=== PATIENT | female | born 1955 | race Caucasian/White ===

== ENCOUNTER 2021-06-16 13:51 | Observation (INO) | payer MEDICARE, OTHER ==
--- NOTE | 2021-06-16 14:35 | ED ---
General Adult HPI - General Chief complaint: Weakness Stated complaint: Chest Pain Source: patient, old records reviewed Mode of arrival: EMS Limitations: no limitations - History of Present Illness Initial comments: This is a 66-year-old female presents to the emergency department with a history of chest pain over the last 2 weeks. Patient states the pain comes and goes and she's also been short of breath over that period of time as well. Patient decided to go to the emergency department this morning and she spent the last 20 hours there with multiple troponins were negative but she still does not feel at her baseline. Patient states she still feels a little short of breath and still having some chest pain. They do not have cardiology at that facility so they wanted the patient to come here. Evaluated by cardiology. Patient denies any recent fever chills or cough per patient denies abdominal pain patient denies nausea vomiting or diarrhea. Patient denies any recent injury or trauma. - Related Data Allergies Allergy/AdvReac Type Severity Reaction Status Date / Time azithromycin Allergy Swelling Verified 06/16/21 14:11 cyclobenzaprine AdvReac Chest Pain Verified 06/16/21 14:12 [From Flexeril] Review of Systems ROS Statement: Those systems with pertinent positive or pertinent negative responses have been documented in the HPI. ROS Other: All systems not noted in ROS Statement are negative. Past Medical History Past Medical History: Hyperlipidemia, Hypertension History of Any Multi-Drug Resistant Organisms: None Reported Past Surgical History: Orthopedic Surgery, Tonsillectomy, Tubal Ligation Additional Past Surgical History / Comment(s): right knee replacement, left toe plate Past Psychological History: No Psychological Hx Reported, Anxiety, Depression Smoking Status: Never smoker Past Alcohol Use History: None Reported Past Drug Use History: None Reported General Exam - General Exam Comments Initial Comments: GENERAL: Patient is well-developed and well-nourished. Patient is nontoxic and well- hydrated and is in mild distress. ENT: Neck is soft and supple. No significant lymphadenopathy is noted. Oropharynx is clear. Moist mucous membranes. Neck has full range of motion without eliciting any pain. EYES: The sclera were anicteric and conjunctiva were pink and moist. Extraocular movements were intact and pupils were equal round and reactive to light. Eyelids were unremarkable. PULMONARY: Unlabored respirations. Good breath sounds bilaterally. No audible rales rhonchi or wheezing was noted. CARDIOVASCULAR: There is a regular rate and rhythm without any murmurs gallops or rubs. ABDOMEN: Soft and nontender with normal bowel sounds. SKIN: Skin is clear with no lesions or rashes and otherwise unremarkable. NEUROLOGIC: Patient is alert and oriented x3. Cranial nerves II through XII are grossly intact. Motor and sensory are also intact. Normal speech, volume and content. Symmetrical smile. MUSCULOSKELETAL: Normal extremities with adequate strength and full range of motion. No lower extremity swelling or edema. No calf tenderness. LYMPHATICS: No significant lymphadenopathy is noted PSYCHIATRIC: Normal psychiatric evaluation. Limitations: no limitations Course Vital Signs 06/16/21 14:03 Temperature 98.2 F Pulse Rate 73 Respiratory 18 Rate Blood Pressure 103/57 O2 Sat by Pulse 95 Oximetry Medical Decision Making - Medical Decision Making EKG shows normal sinus rhythm at [address] interval is on a 52 QRS is 88 QT interval 386 QTC is 416. Patient's EKG shows inverted T waves inferiorly which were seen on the previous EKG from [facility] no ST segment elevation is noted. I spoke with the sound physician's he agreed to admit the patient admitted the patient I wrote admitting orders. Disposition Clinical Impression: Chest pain Disposition: ADMITTED IP TO THIS HOSP Referrals: Polo Morales MD [Primary Care Provider] - 1-2 days Time of Disposition: 14:35
[2021-06-16] MEDS ORDERED: NITROGLYCERIN SL TABS 0.4 MG TAB SUBLINGUAL PRN (14:36)
--- NOTE | 2021-06-16 16:08 | P.HPIM ---
History of Present Illness H&P Date: 06/16/21 Chief Complaint: chest discomfort This is a 66-year-old female presents with chest pain over the last 2 weeks. Patient states the pain comes and goes and she's also been short of breath over that period of time as well. She had multiple troponins were negative but she still does not feel at her baseline. Patient states she still feels a little short of breath and feels lethargic. Patient denies any recent fever chills or cough per patient denies abdominal pain patient denies nausea vomiting or diarrhea. She denies hematuria , dysuria or hematemesis. At the time of examination , pt is in bed and does not appear to be in distress Review of Systems 10 systems reviewed , pertinent + and - findings as in HPI. no n/v or dizziness Past Medical History Past Medical History: Hyperlipidemia, Hypertension History of Any Multi-Drug Resistant Organisms: None Reported Past Surgical History: Orthopedic Surgery, Tonsillectomy, Tubal Ligation Additional Past Surgical History / Comment(s): right knee replacement, left toe plate Past Psychological History: No Psychological Hx Reported, Anxiety, Depression Smoking Status: Never smoker Past Alcohol Use History: None Reported Past Drug Use History: None Reported Medications and Allergies Home Medications Medication Instructions Recorded Confirmed Type ALPRAZolam [Xanax] 0.5 mg PO TID PRN 06/16/21 06/16/21 History Alendronate Sodium [Fosamax] 35 mg PO WE 06/16/21 06/16/21 History Atenolol [Tenormin] 100 mg PO DAILY 06/16/21 06/16/21 History Atorvastatin [Lipitor] 20 mg PO DAILY 06/16/21 06/16/21 History Butalb/Acetaminophen/Caffeine 1 tab PO Q6H PRN 06/16/21 06/16/21 History [Esgic 50-325-40 mg Tablet] Cider Vinegar [Apple Cider Vinegar] 600 mg PO HS 06/16/21 06/16/21 History L.acidoph,Paracasei, B.lactis 2 cap PO DAILY 06/16/21 06/16/21 History [Probiotic] SUMAtriptan succinate [Imitrex] 50 mg PO BID PRN 06/16/21 06/16/21 History Triamterene-Hctz 37.5-25Mg 1 tab PO DAILY 06/16/21 06/16/21 History [Maxzide 37.5-25] Venlafaxine HCl ER [Effexor Xr] 37.5 mg PO DAILY 06/16/21 06/16/21 History amLODIPine [Norvasc] 2.5 mg PO DAILY 06/16/21 06/16/21 History Allergies Allergy/AdvReac Type Severity Reaction Status Date / Time erythromycin base Allergy Swelling/Ra Verified 06/16/21 15:40 [From Erythrocin] sh cyclobenzaprine AdvReac Chest Pain Verified 06/16/21 15:40 [From Flexeril] Physical Exam Vitals: Vital Signs Temp Pulse Pulse Resp BP BP Pulse Ox 06/16/21 15:55 97.9 F 65 16 144/69 99 06/16/21 15:40 98.2 F 66 18 128/55 95 06/16/21 15:32 66 18 128/55 95 06/16/21 14:03 98.2 F 73 18 103/57 95 Intake and Output 06/16/21 06/16/21 06/16/21 06:59 14:59 22:59 Other: Weight 69.4 kg Patient is well-developed and well-nourished. Patient is nontoxic not in distress ENT: Neck is soft and supple. No significant lymphadenopathy Neck has full range of motion without eliciting any pain. EYES: The sclera were anicteric and conjunctiva were pink and moist PULMONARY: Unlabored respirations. Good breath sounds bilaterally. CARDIOVASCULAR: There is a regular rate and rhythm without any murmurs gallops or rubs. ABDOMEN: Soft and nontender with normal bowel sounds. SKIN: Skin is clear with no lesions or rashes and otherwise unremarkable. NEUROLOGIC: Patient is alert and oriented x3. Cranial nerves II through XII are grossly intact. Motor and sensory are also intact. Normal speech, volume and content. Symmetrical smile. MUSCULOSKELETAL: Normal extremities with adequate strength and full range of motion. No lower extremity swelling or edema. PSYCHIATRIC: Normal psychiatric evaluation. Assessment and Plan Plan: 1. Chest discomfort , unspecified etiology: supportive care ,continue on tele , continue to monitor ,check cardiac enzymes and ddimer , obtain 2D ECHO and cardiology consult 2. Hypovolemia; NS @ 75 ml/hr 3. Anxiety: continue out pt [facility] 4. HLD: on statin 5. Migraine without exacerbation: supportive are 6. Depression: continue Effexor obs DVT prophylaxis: SCD
[2021-06-16] MEDS ORDERED: ALPRAZolam 0.5 MG TAB PO PRN (16:14)
[2021-06-16] MEDS: SODIUM CHLORIDE 0.9% 1,000 ML IV SCH (16:34)
[2021-06-16] MEDS: NITROGLYCERIN OINT 1 INCH/GM PACKET TOPICAL SCH (16:34)
[2021-06-16] MEDS ORDERED: atenoloL 50 MG TAB PO STA (16:52)
[2021-06-16] MEDS ORDERED: ASPIRIN 325 MG TAB PO STA (17:06)
[2021-06-16] MEDS: BUTALB/APAP/CAFF 50-325-40MG TAB PO PRN (17:50)
[2021-06-17] MEDS: NITROGLYCERIN OINT 1 INCH/GM PACKET TOPICAL SCH ×3 (01:28→14:57)
[2021-06-17] MEDS: BUTALB/APAP/CAFF 50-325-40MG TAB PO PRN ×2 (04:46→14:55)
[2021-06-17] MEDS: SODIUM CHLORIDE 0.9% 1,000 ML IV SCH (05:49)
[2021-06-17 07:36] VITALS: RESP 18
[2021-06-17] MEDS ORDERED: ATORVASTATIN 20 MG TAB PO SCH (09:00)
[2021-06-17] MEDS ORDERED: VENLAFAXINE HCL ER 37.5 MG CAP PO SCH (09:00)
[2021-06-17] MEDS ORDERED: amLODIPine 2.5 MG TAB PO SCH (09:00)
[2021-06-17] MEDS ORDERED: atenoloL 50 MG TAB PO SCH (09:00)
[2021-06-17] MEDS ORDERED: ASPIRIN 81 MG PO SCH (09:00)
[2021-06-17] MEDS ORDERED: ASPIRIN 325 MG TAB PO SCH (09:00)
[2021-06-17] MEDS ORDERED: TRIAMTERENE-HCTZ 37.5-25MG 1 EACH TAB PO SCH (09:00)
[2021-06-17 09:35] LABS: Basophils # (A) 0.04 X 10*3/uL (0.00-0.10); Basophils % (A) 0.7 %; Eosinophils # (A) 0.13 X 10*3/uL (0.04-0.35); Eosinophils % (A) 2.3 %; HCT 35.7 % (37.2-46.3); HGB 12.4 g/dL (12.0-15.0); Lymphocytes # (A) 2.24 X 10*3/uL (0.90-5.00); Lymphocytes % (A) 39.4 %; MCH 31.6 pg (27.0-32.0); MCHC 34.7 g/dL (32.0-37.0); MCV 90.8 fL (80.0-97.0); Mean Platelet Volume 9.9 fL (9.5-12.2); Monocytes # (A) 0.89 X 10*3/uL (0.20-1.00); Monocytes % (A) 15.6 %; Neutrophils # (A) 2.36 X 10*3/uL (1.80-7.70); Neutrophils % (A) 41.5 %; Platelet Count 302 X 10*3/uL (140-440); RBC 3.93 X 10*6/uL (4.10-5.20); RDW 11.9 % (11.5-14.5); WBC 5.69 X 10*3/uL (4.50-10.00)
--- NOTE | 2021-06-17 10:05 | P.CRDCN ---
History of Present Illness History of present illness: HISTORY OF PRESENTING ILLNESS This is a pleasant 66-year-old female past medical history significant for dyslipidemia, hypertension, anxiety, depression. She does not follow with a international relations teacher. We have been asked to see in consultation for chest pain. Patient is seen and examined seen and examined at bedside, no acute distress. Patient states that she has been having symptoms of fatigue, shortness of breath, chest pain, lightheadedness for the past 2 weeks. 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 She states she did have some radiation to her back. She had associated nausea, shortness of breath. Her co-workers noticed she did not look well and said she should go home. She denies any specific aggravating factors. She states she went home and her drove her to the ER. She initially went to [facility] in [place]. She states she was given nitroglycerin which helped relieve her pain. She states she january of had covid-19 she was exposed by a neighbor but found out late in November 2020 but did not get tested. She denies history of coronary artery disease, [place], stroke, diabetes. She is a non-smoker, denies alchohol use. She denies any symptoms of orthopnea or PND. Over the past month she states she has just been feeling short of breath and easily fatigued. She states she just has not been feeling well. She is normally active, but over the past month she states she's been feeling herself. At [facility] in [place], Labs revealed troponin negative 1, d-dimer negative, COVID- 19 PCR negative, hemoglobin 13.6, WBC 8, platelets 304, sodium 131, potassium 3.8, BUN 23, serum creatinine 1.3. Patient was given sublingual nitro, 81 mg of aspirin. DIAGNOSTICS EKG reveals sinus rhythm, heart rate 70, T wave inversions in leads inferior leads. No prior EKG to compare Telemetry tracings indicate sinus mechanism heart rate is 6080s. Laboratory reviewed, troponin negative 2, COVID-19 PCR negative, d-dimer negative, WBC 5.6, hemoglobin 12, platelets 302, CMP panel pending. Current home medications include amlodipine 2.5 mg daily, atenolol 100 mg daily, atorvastatin 20 mg daily, Effexor, triamterenehctz 37.5-25mg daily, Imitrex, Fosamax, PRN Xanax REVIEW OF SYSTEMS At the time of my exam: CONSTITUTIONAL: Denies fever or chills. CARDIOVASCULAR: +chest pain, +shortness of breath, Denies orthopnea, PND or palpitations. RESPIRATORY: Denies cough. GASTROINTESTINAL: +nausea Denies abdominal pain, diarrhea, constipation, vomiting. MUSCULOSKELETAL: Denies myalgias. NEUROLOGIC: +lightheadeness Denies numbness, tingling, headacbe or weakness. ENDOCRINE: Denies fatigue, weight change, polydipsia or polyurina. GENITOURINARY: Denies burning, hematuria or urgency with micturation. HEMATOLOGIC: Denies history of anemia or bleeding. PHYSICAL EXAMINATION Blood pressure 129/60, heart rate 59, afebrile, maintaining oxygen saturations on room air. CONSTITUTIONAL: No apparent distress. HEENT: Head is normocephalic. Pupils are equal, round. Sclerae anicteric. Mucous membranes of the mouth are moist. No JVD. No carotid bruit. CHEST EXAMINATION: Lungs are clear to auscultation. No chest wall tenderness is noted on palpation or with deep breathing. HEART EXAMINATION: Regular rate and rhythm. S1, S2 heard. No murmurs, gallops or rub. ABDOMEN: Soft, nontender. Positive bowel sounds. EXTREMITIES: 2+ peripheral pulses, no lower extremity edema and no calf tenderness. SKIN: warm, dry NEUROLOGIC EXAMINATION: Patient is awake, alert and oriented x3. ASSESSMENT Chest pain, atypical, acute coronary syndrome has been ruled out Dyslipidemia Hypertension History of anxiety and depression Acute Kidney Injury, sCr 1.3 at [facility], repeat pending PLAN An acute coronary event has been ruled out with no EKG evidence of ischemia and negative cardiac enzymes. Obtain 2D echocardiogram and doppler study to assess cardiac structure and function. Perform stress echo test to assess for stress induced cardiac ischemia. If abnormal will consider coronary angiography. Continue aspirin 81 mg daily, amlodipine 2.5 mg daily, atorvastatin 20 mg daily, and triamterenehctz 37.5-25mg daily Hold atenolol prior to stress test If stress test normal and echocardiogram with no acute findings, no further workup from a cardiology perspective and Patient can follow up outpatient. Thank you kindly for this consultation. Nurse Practitioner note has been reviewed, I agree with a documented findings and plan of care. Patient was seen and examined. Past Medical History Past Medical History: Hyperlipidemia, Hypertension Additional Past Medical History / Comment(s): urinary tract infection and sepsis in Aug 2020,. Rhumatic fever and hepatitis as child History of Any Multi-Drug Resistant Organisms: None Reported Past Surgical History: Orthopedic Surgery, Tonsillectomy, Tubal Ligation Additional Past Surgical History / Comment(s): right knee replacement, left toe plate Past Anesthesia/Blood Transfusion Reactions: No Reported Reaction Past Psychological History: No Psychological Hx Reported, Anxiety, Depression Smoking Status: Never smoker Past Alcohol Use History: None Reported Past Drug Use History: None Reported - Past Family History Father Family Medical History: Chest Pain / Angina, Congestive Heart Failure (CHF) Brother(s) Additional Family Medical History / Comment(s): suicide Medications and Allergies Home Medications Medication Instructions Recorded Confirmed Type ALPRAZolam [Xanax] 0.5 mg PO TID PRN 06/16/21 06/16/21 History Alendronate Sodium [Fosamax] 35 mg PO WE 06/16/21 06/16/21 History Atenolol [Tenormin] 100 mg PO DAILY 06/16/21 06/16/21 History Atorvastatin [Lipitor] 20 mg PO DAILY 06/16/21 06/16/21 History Butalb/Acetaminophen/Caffeine 1 tab PO Q6H PRN 06/16/21 06/16/21 History [Esgic 50-325-40 mg Tablet] Cider Vinegar [Apple Cider Vinegar] 600 mg PO HS 06/16/21 06/16/21 History L.acidoph,Paracasei, B.lactis 2 cap PO DAILY 06/16/21 06/16/21 History [Probiotic] SUMAtriptan succinate [Imitrex] 50 mg PO BID PRN 06/16/21 06/16/21 History Triamterene-Hctz 37.5-25Mg 1 tab PO DAILY 06/16/21 06/16/21 History [Maxzide 37.5-25] Venlafaxine HCl ER [Effexor Xr] 37.5 mg PO DAILY 06/16/21 06/16/21 History amLODIPine [Norvasc] 2.5 mg PO DAILY 06/16/21 06/16/21 History Allergies Allergy/AdvReac Type Severity Reaction Status Date / Time erythromycin base Allergy Swelling/Ra Verified 06/16/21 15:40 [From Erythrocin] sh cyclobenzaprine AdvReac Chest Pain Verified 06/16/21 15:40 [From Flexeril] Physical Exam Vitals: Vital Signs Temp Pulse Pulse Resp BP BP Pulse Ox 06/17/21 08:28 99 06/17/21 07:00 97.7 F 59 L 18 129/62 99 06/17/21 03:01 97.5 F L 62 20 112/68 95 06/17/21 02:00 62 20 06/16/21 20:00 73 20 06/16/21 19:59 97.6 F 73 20 122/70 95 06/16/21 16:00 16 06/16/21 15:55 97.9 F 65 16 144/69 99 06/16/21 15:40 98.2 F 66 18 128/55 95 06/16/21 15:32 66 18 128/55 95 06/16/21 14:03 98.2 F 73 18 103/57 95 Intake and Output 06/16/21 06/17/21 06/17/21 22:59 06:59 14:59 Other: Voiding Method Toilet # Voids 2 2 Weight 69.4 kg Results 06/17/21 05:20 Cardiac Enzymes 06/16/21 06/16/21 Range/Units 16:45 18:59 Troponin I <0.012 <0.012 (0.000-0.034) ng/mL Current Medications Generic Name Dose Route Start Last Admin Trade Name Freq PRN Reason Stop Dose Admin Acetaminophen/Butalbital/Caffeine 1 each 06/16/21 16:33 06/17/21 04:46 Butalb/Apap/Caff 50-325-40mg Tab PO 1 each Q6H PRN Administration Migraine Headache Alprazolam 0.5 mg 06/16/21 16:14 06/16/21 21:34 Alprazolam 0.5 Mg Tab PO 0.5 mg TID PRN Administration Anxiety Amlodipine Besylate 2.5 mg 06/17/21 09:00 06/17/21 08:16 Amlodipine 2.5 Mg Tab PO 2.5 mg DAILY RULA Administration Aspirin 325 mg 06/17/21 09:00 06/17/21 08:14 Aspirin 325 Mg Tab PO 325 mg DAILY RULA Administration Atenolol 100 mg 06/17/21 09:00 Atenolol 50 Mg Tab PO DAILY RULA Atorvastatin Calcium 20 mg 06/17/21 09:00 06/17/21 08:14 Atorvastatin 20 Mg Tab PO 20 mg DAILY RULA Administration Sodium Chloride 1,000 mls @ 75 mls/hr 06/16/21 16:30 06/17/21 05:49 Saline 0.9% IV 75 mls/hr .[id number] RULA Administration Nitroglycerin 1 inch 06/16/21 18:00 06/17/21 06:16 Nitroglycerin Oint 1 Inch/Gm Packet TOPICAL 1 inch Q6HR RULA Administration Nitroglycerin 0.4 mg 06/16/21 14:36 Nitroglycerin Sl Tabs 0.4 Mg Tab SUBLINGUAL Q5M PRN Chest Pain Triamterene/Hydrochlorothiazide 1 each 06/17/21 09:00 06/17/21 08:15 Triamterene-Hctz 37.5-25mg 1 Each Tab PO 1 each DAILY RULA Administration Venlafaxine HCl 37.5 mg 06/17/21 09:00 06/17/21 08:15 Venlafaxine Hcl Er 37.5 Mg Cap PO 37.5 mg DAILY RULA Administration Intake and Output 06/16/21 06/17/21 06/17/21 22:59 06:59 14:59 Other: Voiding Method Toilet # Voids 2 2 Weight 69.4 kg
[2021-06-17 11:01] LABS: Albumin 4.3 g/dL (3.80-4.90); Albumin/Globulin Ratio 1.95 (1.60-3.17); Anion Gap 7.6 mmol/L (4.00-12.00); Calcium 9.2 mg/dL (8.7-10.3); Carbon Dioxide 28.4 mmol/L (21.6-31.8); Chol/HDL Ratio 2.03; Globulin 2.2 g/dL (1.6-3.3); LDL Cholesterol,Calculated 49.6 mg/dL (0.0-131.0); Non-African American GFR(CKD) 57.8 (60.0-200.0); Potassium 3.5 mmol/L (3.5-5.5); Total Bilirubin 0.3 mg/dL (0.3-1.2); Total Protein 6.5 g/dL (6.2-8.2); VLDL Calculation 24.4 mg/dL (5.00-40.00)
[2021-06-17] MEDS ORDERED: DOBUTamine DRIP for NUC MED 500 MG in DEXTROSE/WATER 1 250ML.BAG IV PRN (11:26)
[2021-06-17 13:52] VITALS: BP 127/68; PULSE 62; TEMP 97.6
--- NOTE | 2021-06-17 15:26 | P.DS ---
Providers Date of admission: 06/16/21 14:36 Expected date of discharge: 06/17/21 Attending physician: Danna Harding DO Consults: 06/16/21 14:36 Consult Physician Urgent Consulting Provider: [facility] Consult Reason/Comments: Chest pain Do you want consulting provider notified?: Yes Primary care physician: Polo Morales MD Hospital Course: Chest discomfort , unspecified etiology: Patient admitted for ACS rule out. Trops were negative. EKG non-ischemic. Echo with no WMA, preserved EF. Stress Echo negative for reversible ischemia. Pt discharged home with PCP follow up. Anxiety: continued outpt [facility] on discharge HLD: on statin, continued on discharge Assessment: Gen: awake, alert HEENT: normocephalic, atraumatic, good hearing acuity, moist mucous membranes Resp: good air exchange, breathing comfortably with no accessory muscle use CVS: good distal perfusion x 4, GI: soft, NTTP, ND : no SPT, no CVAT, shankar catheter not present MSK: no pitting edema, no clubbing Neuro: non-focal, moving all extremities Psych: cooperative, euthymic mood Patient Condition at Discharge: Good Plan - Discharge Summary New Discharge Prescriptions: New Aspirin 81 mg PO DAILY tab Continue Venlafaxine HCl ER [Effexor XR] 37.5 mg PO DAILY Atorvastatin [Lipitor] 20 mg PO DAILY Cider Vinegar [Apple Cider Vinegar] 600 mg PO HS Triamterene-Hctz 37.5-25Mg [Maxzide 37.5-25] 1 tab PO DAILY SUMAtriptan succinate [Imitrex] 50 mg PO BID PRN PRN Reason: Migraine Headache Butalb/Acetaminophen/Caffeine [Esgic 50-325-40 mg Tablet] 1 tab PO Q6H PRN PRN Reason: Migraine Headache amLODIPine [Norvasc] 2.5 mg PO DAILY Atenolol [Tenormin] 100 mg PO DAILY Alendronate Sodium [Fosamax] 35 mg PO WE ALPRAZolam [Xanax] 0.5 mg PO TID PRN PRN Reason: Anxiety L.acidoph,Paracasei, B.lactis [Probiotic] 2 cap PO DAILY Discharge Medication List ALPRAZolam [Xanax] 0.5 mg PO TID PRN 06/16/21 [History] Alendronate Sodium [Fosamax] 35 mg PO WE 06/16/21 [History] Atenolol [Tenormin] 100 mg PO DAILY 06/16/21 [History] Atorvastatin [Lipitor] 20 mg PO DAILY 06/16/21 [History] Butalb/Acetaminophen/Caffeine [Esgic 50-325-40 mg Tablet] 1 tab PO Q6H PRN 06/16/21 [History] Cider Vinegar [Apple Cider Vinegar] 600 mg PO HS 06/16/21 [History] L.acidoph,Paracasei, B.lactis [Probiotic] 2 cap PO DAILY 06/16/21 [History] SUMAtriptan succinate [Imitrex] 50 mg PO BID PRN 06/16/21 [History] Triamterene-Hctz 37.5-25Mg [Maxzide 37.5-25] 1 tab PO DAILY 06/16/21 [History] Venlafaxine HCl ER [Effexor XR] 37.5 mg PO DAILY 06/16/21 [History] amLODIPine [Norvasc] 2.5 mg PO DAILY 06/16/21 [History] Aspirin 81 mg PO DAILY tab 06/17/21 [Rx] Follow up Appointment(s)/Referral(s): Polo Morales MD [Primary Care Provider] - 1-2 days Discharge Disposition: HOME SELF-CARE
--- NOTE | 2021-06-17 15:36 | ECHOS ---
STRESS ECHOCARDIOGRAM INDICATIONS: Chest pain BASELINE HEART RATE: 68 BASELINE BLOOD PRESSURE: 136/59 MAXIMUM HEART RATE: 136 MAXIMUM BLOOD PRESSURE: 200/63 85% MPHR: 129 100% MPHR: 152 METS: MAXIMUM STAGE REACHED: TOTAL EXERCISE TIME: CLINICAL INFORMATION: Baseline rhythm is sinus mechanism, rate 68, normal axis and intervals, nonspecific ST- T wave changes. Baseline blood pressure 136/59 mmHg. Patient received an infusion of dobutamine, reaching a peak rate of 136 beats per minute, which is equal to 89% of maximum predicted heart rate. Peak blood pressure 181/60 mmHg. Electrocardiographic monitoring revealed a [address]-segment depression in the inferolateral leads that improved gradually in recovery. FINDINGS: Baseline echocardiogram revealed normal wall motion. At peak infusion, there was normal wall motion augmentation with no hypokinesis or dyskinesis. CONCLUSION: 1. Nondiagnostic electrocardiographic stress testing secondary to baseline EKG abnormality. 2. Normal stress echocardiogram with no evidence of stress-induced ischemia. MMODL / IJN: [id number] / MTDD
--- NOTE | 2021-06-19 13:35 | ECHOF ---
MEASUREMENTS HEIGHT: 167.6 cm WEIGHT: 69.4 kg BP: IVSd: 0.9 cm LVIDd: 3.9 cm LVPWd: 0.9 cm IVSs: 1.8 cm LVIDs: 1.8 cm LVPWs: 1.4 cm LAESV Index (A-L): 14.25 ml/m MV EXCURSION: 18.742 mm MV EF SLOPE: 38 mm/s EPSS: 1.1 cm MV E Govind: 0.49 m/s MV DecT: 261 ms MV A Govind: 0.94 m/s MV E/A Ratio: 0.52 E/E': 6.49 E': 0.08 m/s RAP: 5.00 mmHg RVSP: 26.33 mmHg FINDINGS Sinus rhythm This was a technically adequate study. The left ventricular size is normal. Left ventricular wall thickness is normal. Overall left ventricular systolic function is normal with, an EF between 55 - 60%. The diastolic filling pattern is normal for the age of the patient 6.49. The right ventricle is normal in size. Normal LA size by volume 22+/-6 ml/m2. The right atrial size is normal. The aortic valve is normal. There is trace mitral regurgitation. The tricuspid valve appears structurally normal. Mild tricuspid regurgitation present. Right ventricular systolic pressure is normal at <35 mmHg. There is no pulmonic regurgitation present. The aortic root size is normal. Normal inferior vena cava with normal inspiratory collapse consistent with estimated right atrial pressure of 5 mmHg. There is no pericardial effusion. CONCLUSIONS 1. Overall left ventricular systolic function is normal with, an EF between 55 - 60%. 2. Normal LA size by volume 22+/-6 ml/m2. 3. The aortic valve is trileaflet, and appears structurally normal. No aortic stenosis or regurgitation. 4. There is trace mitral regurgitation. 5. Mild tricuspid regurgitation present. 6. There is no pericardial effusion. MTDD
== END 2021-06-17 16:03 | disposition home or self-care (01) ==
LOC: EC 13:51 → 6NMEDSUR 14:36
PROVIDERS: ADMIT Internal Medicine; ATTEND Internal Medicine
DX: R07.89 Other chest pain (principal); F41.9 Anxiety disorder, unspecified; I10 Essential (primary) hypertension; E86.1 Hypovolemia; G43.909 Migraine, unspecified, not intractable, without status migrainosus; R06.02 Shortness of breath; E78.5 Hyperlipidemia, unspecified; N17.9 Acute kidney failure, unspecified; F32.9 Major depressive disorder, single episode, unspecified; I07.1 Rheumatic tricuspid insufficiency; Z20.822 Contact with and (suspected) exposure to COVID-19; Z87.440 Personal history of urinary (tract) infections; Z86.19 Personal history of other infectious and parasitic diseases; Z96.651 Presence of right artificial knee joint; Z79.83 Long term (current) use of bisphosphonates; Z79.899 Other long term (current) drug therapy; Z88.1 Allergy status to other antibiotic agents; Z88.8 Allergy status to other drugs, medicaments and biological substances; Z82.49 Family history of ischemic heart disease and other diseases of the circulatory system; Z81.8 Family history of other mental and behavioral disorders
CPT/HCPCS: 99285; 94760; 93005; 93306; 93351; 85379; 80061; 80053; 84484; 85025; 87635; G0378 ×2; J1250